=== PATIENT | female | born 2000 | race Caucasian/White ===

== ENCOUNTER 2024-08-19 16:09 | Emergency (ER) | payer SELFPAY ==
[2024-08-19 16:10] VITALS: BP 164/91; PULSE 91; RESP 16; TEMP 36.6; O2SAT 99; BMI 37.0
[2024-08-19 17:14] VITALS: PULSE 78; RESP 19; O2SAT 98
--- NOTE | 2024-08-19 17:48 | EDS_ITS ---
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 Acanthocytes (Spur) Rouleaux Schistocytes Sodium Potassium Chloride Carbon Dioxide Anion Gap BUN Creatinine Estim Creat Clear Calc Est GFR (MDRD) Non-Af BUN/Creatinine Ratio Glucose Calcium Cancelled Serum , Qual NEGATIVE Urine Opiates Screen NEGATIVE U Buprenorphine Qual NEGATIVE Ur Oxycodone Screen NEGATIVE Urine Methadone Screen NEGATIVE Urine Fentanyl Screen NEGATIVE Ur Barbiturates Screen NEGATIVE Ur Phencyclidine Scrn NEGATIVE Ur Amphetamines Screen NEGATIVE U Benzodiazepines Scrn NEGATIVE Urine Cocaine Screen NEGATIVE U Cannabinoids Screen NEGATIVE Ethyl Alcohol < 10.1 Management Discussion w/another healthcare provider: blow off worker/Case management (Lissett informing that she called the licensed psychiatric technician for crisis since [place] and self-pay. The crisis licensed psychiatric technician is presently evaluating the patient.) and Behavioral health (Lysin social science teacher informing that all laces and things that she can hang herself have been removed from her room and possession. She has been safety plan. The facility is comfortable with this She will continue with intensive outpatient therapy in light of this new information.) Discharge Plan Triage Chief Complaint: Suicidal ED Provider: Min Hyman Dx/Rx/DC Orders Clinical Impression: Major depression, Suicidal ideation, Elevated blood-pressure reading without diagnosis of hypertension, BMI 37.0-37.9, adult Instructions: ED Depression, ED Hypertension, To Be Confirmed Prescriptions: No Action fluoxetine [Prozac] 40 mg capsule 40 mg PO DAILY Primary Care Provider: Debby Smith Referrals: Debby Smith MD [Primary Care Provider] - 1-2 Weeks Activity Restrictions/Additional Instructions: Follow-up with Dr. Debby Smith in 1 to 2 weeks to have blood pressure reassessed. Print Language: German Disposition Disposition: Home, Self Care
[2024-08-19 17:49] LABS: Absolute Lymphocyte Count 2.05 X10^3/uL (0.83-4.51); Absolute Neutrophil Count 8.3 X10^3/uL (2.0-7.7); Basophil# 0.06 X10^3/uL; Basophil% 0.5 % (0-1); Eosinophil# 0.14 X10^3/uL; Eosinophils% 1.2 % (0-5); Hematocrit 41.9 % (37-47); Hemoglobin 13.6 g/dL (12.0-15.0); Lymphocyte # 2.05 X10^3/ul (0.83-4.51); Lymphocyte % 17.6 % (19-41); Mean Corp Hgb Conc 32.5 g/dL (32-36); Mean Corpuscular Hgb 28.2 pg (27.0-32.0); Mean Corpuscular Volume 86.9 fL (81-99); Mean Platelet Vol. 10.1 fl (6.2-12.0); Monocyte# 1.09 X10^3/uL; Monocyte% 9.3 % (0-10); NRBC Flagged by Analyzer 0 % (0-5); Neutrophil # 8.29 X10^3/uL (2.7-7.7); Platelet Count 367 K/mm3 (150-450); RBC Distribution Width CV 12.1 % (11.6-14.6); RBC Distribution Width SD 38.4 fl (35.1-43.9); Red Blood Count 4.82 M/mm3 (4.2-5.4); White Blood Count 11.7 K/mm3 (4.4-11.0)
--- NOTE | 2024-08-19 17:50 | ED.RN ---
room cleared, patient belongings removed from room. Sitter at bedside
[2024-08-19 18:27] LABS: Alcohol, Blood (Medical)-Serum < 10.1 mg/dL (<=10.0)
[2024-08-19 18:27] LABS: Amphetamine Urine NEGATIVE (<1000 ng/mL); Barbiturate Urine NEGATIVE (< 200 ng/mL); Benzodiazepine Urine NEGATIVE (< 200 ng/mL); Buprenorphine Urine NEGATIVE (< 200 ng/mL); Cocaine Urine NEGATIVE (< 300 ng/mL); Fentanyl, Urine NEGATIVE; Methadone Urine NEGATIVE (< 300 ng/mL); Opiates Urine NEGATIVE (< 300 ng/mL); Oxycodone, Urine NEGATIVE (< 100 ng/mL); PCP Urine NEGATIVE (< 25 ng/mL); THC Urine NEGATIVE (< 50 ng/mL)
[2024-08-19 18:28] LABS: Anion Gap 13 (5-15); BUN 13 mg/dL (4-19); BUN/Creat Ratio 21.5 RATIO (10-20); Calcium,Total 9.6 mg/dL (7.6-11.0); Carbon Dioxide 21.8 mmol/L (21.0-32.0); Chloride 104 mmol/L (98-108); Creatinine, Serum 0.62 mg/dL (0.70-1.20); EST Glomerular Filtration Rate 128 (>60); Estimated Creatinine Clearance 148.77 ml/min (50-250); Glucose 96 mg/dL (70-99); Potassium 3.8 mmol/L (3.3-5.1); Sodium Level 139 mmol/L (133-145)
[2024-08-19 18:36] LABS: Internal QC Validated? YES +Cl - CLEAR BKGD; Pregnancy, Serum, hCG Quali. NEGATIVE Negative
--- NOTE | 2024-08-19 19:31 | CM.ED ---
Social Work SW received phone call from Angelita Goel from [facility] stating they were sending a client to the ED. Angelita stated during their intake, patient made suicidal statements and they felt she needed evaluated to determine if she needed inpatient psychiatric hospitalization. SW spoke with patient and patients counselor who stated patient was from [place] and would be private pay. Crisis was contacted for assessment. No further needs identified at this time. Lissett Owen, PUBLIC BATH ATTENDANT, DATA STEWARD
== END 2024-08-19 20:06 | disposition home or self-care (01) ==
PROVIDERS: Emergency Provider Emergency Medicine; PCP Family Medicine; Visit Provider Emergency Medicine
DX: F32.9 Major depressive disorder, single episode, unspecified (principal); R03.0 Elevated blood-pressure reading, without diagnosis of hypertension; R45.851 Suicidal ideations; Z63.8 Other specified problems related to primary support group; Z62.819 Personal history of unspecified abuse in childhood
CPT/HCPCS: 36415; 80048; 80307; 82077; 84703; 85025; 99285